=== PATIENT | male | born 1930 | race Caucasian/White ===

== ENCOUNTER 2018-02-01 07:13 | Observation (INO) | payer BC ==
[2018-02-01] MEDS ORDERED: NS 0.9% 1000 ML*IV.FLUID IV ONE (07:44)
[2018-02-01] MEDS ORDERED: cefTRIAXone(*) 1 GM in NS 0.9% 50 ML* 50 ML IVPB ONE (07:46)
[2018-02-01 08:00] LABS: ABS Basophils 0 10^3/ul (0-0.2); ABS Eosinophils 0 10^3/ul (0-0.6); ABS Lymphocytes 0.2 10^3/ul (1.0-4.8); ABS Monocytes 0.8 10^3/ul (0-0.8); ABS Neutrophils 7.6 10^3/ul (1.5-7.7); ABS Nucleated RBC 0 10^3/ul; Eosinophil % 0 % (0-6); Hematocrit 34 % (42-52); Hemoglobin 11.6 g/dl (14.0-18.0); Lymphocyte % 1.9 % (25-47); Mean Corpuscular HGB Conc 34 g/dl (31-36); Mean Corpuscular Hemoglobin 35 pg (27-31); Mean Corpuscular Volume 103 fL (80-94); Mean Platelet Volume 8.1 um3 (7.4-10.4); Nucleated Red Blood Cells % 0; Platelet Count 237 10^3/ul (150-450); Red Blood Count 3.29 10^6/ul (4.0-5.4); Red Cell Distribution Width 13 % (10.5-15); White Blood Count 8.6 10^3/ul (3.5-10.8)
[2018-02-01 08:19] LABS: EGFR Non-African American 65.7 (>60)
[2018-02-01] MEDS ORDERED: Acetaminophen TAB* 325 MG PO ONE (08:30)
--- NOTE | 2018-02-01 08:35 | RAD ---
INDICATION: Shortness of breath. COMPARISON: None TECHNIQUE: PA and lateral views of the chest were obtained. FINDINGS: The heart and mediastinum are normal in size and contour. The lungs are grossly clear. There is no evidence of large pleural effusion. Visualized bones are normal for the patient's age. There is no radiographic evidence of free air beneath the diaphragm IMPRESSION: No radiographic evidence of acute cardiopulmonary disease.
[2018-02-01] MEDS ORDERED: Albuterol/Ipratropium NEB.SOL* Albuterol 2.5 MG/Ipratropium 0.5 MG 3 ML INH ONE (09:52)
[2018-02-01] MEDS ORDERED: Azithromycin IV(*) 500 MG in NS 0.9% 250 ML* 250 ML IVPB ONE (11:19)
[2018-02-01 11:42] LABS: Urine Appearance Clear; Urine Blood Negative (Negative); Urine Color Yellow; Urine Ketones 1+ (Negative); Urine Protein Negative (Negative); Urine Specific Gravity 1.021 (1.010-1.030); Urine Urobilinogen Negative (Negative)
[2018-02-01] MEDS ORDERED: Acetaminophen TAB* 325 MG PO PRN (11:59)
[2018-02-01] MEDS ORDERED: Ondansetron INJ* 2 MG/ML VIAL IV PRN (11:59)
[2018-02-01] MEDS ORDERED: Albuterol/Ipratropium NEB.SOL* Albuterol 2.5 MG/Ipratropium 0.5 MG 3 ML INH PRN (12:09)
[2018-02-01] MEDS: NS 0.9% 1000 ML* 1,000 ML IV SCH (14:02)
[2018-02-01] MEDS: Heparin VIAL(*) 5000 UNITS/ML VIAL (FIVE THOUSAND) SUBCUT SCH ×2 (14:02→21:30)
[2018-02-01] MEDS: Benzonatate CAP* 100 MG PO PRN ×2 (14:20→21:30)
--- NOTE | 2018-02-01 14:59 | HP ---
CC: Dr. Lion Radford * ADMISSION HISTORY AND PHYSICAL: DATE OF ADMISSION: 02/01/18 PRIMARY CARE DOCTOR: Dr. Lion Radford. MY ATTENDING WHILE IN THE HOSPITAL: Dr. Pal Rouse.* (DICTATED BY EMEKA DICKSON) CHIEF COMPLAINT: Cough, weakness, and shortness of breath x3 days. HISTORY OF PRESENT ILLNESS: Mr. Church is an 87-year-old male with past medical history significant for Waldenstrom's macroglobulinemia, in remission since 2008, and progressive shortness of breath of unknown cause over the past several years, who presents after being in his normal state of health on Wednesday and then becoming progressively weak, getting muscle aches from Wednesday into Wednesday, then developing a cough, which kept him up on Wednesday night. The patient states then he slept until Wednesday 3 p.m., continued to have a cough, chills for which he needed an electric blanket. The patient states the cough was productive of mcgovern sputum and then he continued to feel poorly. The patient had no documented fevers at this time but as above had chills and rigors. The patient had no sick contacts and no exposure to anybody with the flu. The patient had never had anything like this in the past. The patient has had his pneumonia vaccinations and his flu vaccination. The patient overnight had an episode of posttussive vomiting and fecal incontinence of formed stool. The patient has no other abdominal pain or diarrhea. This is what prompted the patient to come in to the hospital. The patient states that he did not have any wheezing with the episode, but that he does have "whistling" in his chest mainly after coughing. The patient states that yesterday, he was able to push a wheelbarrow full of wood uphill, but had to take several breaks while doing so , which is very abnormal for him. The patient came this morning, had a documented fever of 101.5 at home by his , and took aspirin at that time. The patient upon arrival to emergency department had temperature of 100.5, pulse rate of 102, oxygen saturation 91% on room air, and blood pressure of 120/ 64. The patient desatted multiple times down to the mid 80s while in the emergency department on room air, but this resolved with placement of 2 L of oxygen by nasal cannula. The patient had an ABG, which showed decreased PO2 of 54. The patient also had elevated CRP and procalcitonin and a chest x-ray, which showed no acute pulmonary process by radiologist's read, but it showed possible infiltrate in the lower lobes on personal review. For suspected community acquired pneumonia, we are asked to evaluate for admission. The patient had chest pain with cough but no other chest pain. PAST MEDICAL HISTORY: Waldenstrom's macroglobulinemia, treated with chemotherapy in 2008 and in remission, followup every 6 months; BPH; nephrolithiasis; BPPV, now resolved. PAST SURGICAL HISTORY: Appendectomy and cystoscopy x2. MEDICATIONS: Finasteride 5 mg p.o. daily. ALLERGIES: No known drug allergies. FAMILY HISTORY: The patient's father and brother both of myocardial infarctions. The patient's mother of lymphoma. The patient has no other siblings nor other syndromes running in his family. SOCIAL HISTORY: The patient smoked 60 years ago for a couple of years before and while he was in the [facility]. The patient drinks occasional alcohol; never abused alcohol. The patient has never used illicit drugs. The patient works currently in [employer] and has for several decades. The patient is and has 1 adopted child. REVIEW OF SYSTEMS: A 14-point review of systems was reviewed and is negative except as above in the HPI. PHYSICAL EXAMINATION GENERAL: The patient is an 87-year-old male, who appears stated age and sitting comfortably in bed, in no acute distress. VITAL SIGNS: Upon arrival to the emergency department, temperature 100.5, pulse rate 102, respiratory rate 17, oxygen saturation 91% on room air, blood pressure 120/64. HEENT: Head: Normocephalic, atraumatic. Sclerae anicteric. No conjunctival injection. Nasal mucosa is moist. Oral mucosa moist. No pharyngeal erythema, discharge, exudate, or postnasal drip. NECK: Supple, nontender. No lymphadenopathy. No carotid bruits auscultated. RESPIRATORY: The patient has slight expiratory wheezes with prolonged expiratory phase throughout. His lungs, the patient has rhonchi primarily in the left lower lobe and in the right upper lobe. Egophony is negative throughout for consolidation. CARDIAC: Regular rate and rhythm. No clicks, murmurs, gallops, or rubs. Pulses 2+ in the bilateral dorsalis pedis, posterior tibial, and radial areas. No bilateral lower extremity edema or calf tenderness. ABDOMEN: Soft, nontender, nondistended. Bowel sounds present, normoactive in all 4 quadrants. No hepatosplenomegaly. No abdominal bruits auscultated. GENITOURINARY: No suprapubic or CVA tenderness. NEURO: Cranial nerves II through XII intact. No focal deficits. Alert and oriented x3. PSYCHIATRIC: Very pleasant, cooperative. SKIN: Clean, dry, intact. No rash. DIAGNOSTIC STUDIES/LAB DATA: White blood cell count 8.6, hemoglobin 11.6, hematocrit 34, platelet count 234, neutrophil percent 88.5. Fibrinogen 479. pH 7.38, PCO2 30, PO2 54, oxygen saturation 98.7%, base excess -5.5. Sodium 137 , potassium 4.0, chloride 106, carbon dioxide 22, anion gap 9, BUN 26, creatinine 1.07, glucose 136, lactic acid 1.1, calcium 8.9. Bilirubin 0.4, AST 19, ALT 12, alkaline phosphatase 50. Creatine kinase 131, CK-MB 2.6. Troponin I 0.02. CRP 43.07. BNP 74. Total protein 74, albumin 3.6, globulin 3.8, procalcitonin 7.7. Urine shows 1+ ketones, no other significant findings. Influenza A and B negative. Chest x-ray read as no acute cardiopulmonary disease, possible infiltrate in the lower lobes on the lateral view on personal review. Electrocardiogram shows PACs, no ST-segment changes, normal axis, QTc 445, rate of 85, no other abnormalities, consistent with previous exams. ASSESSMENT AND PLAN: Impression: The patient is an 87-year-old male with a past medical history significant only for Waldenstrom's macroglobulinemia, presents with 3 days of cough, weakness, shortness of breath, and not feeling well, consistent with community-acquired pneumonia. The patient admitted to the hospital for antibiotics and supportive care. 1. Acute respiratory failure, possible community-acquired pneumonia. The patient has significant desaturations on room air and elevated procalcitonin, shortness of breath, productive cough, rigors, and elevated temperatures all consistent with community-acquired pneumonia. The patient meets systemic inflammatory response syndrome criteria with a pulse rate upon arrival of 105, temperature of 100.5, PO2 less than 60, and a suspected source of infection of pneumonia. The patient has a Pneumonia Severity Index of 95 points indicating 8.2% to 9.3% predictive mortality. The patient for his hypoxia has 2 points on his SOFA. We will get a urinary antigen for Streptococcus pneumoniae and legionella. Give ceftriaxone and azithromycin for empiric community-acquired pneumonia coverage. The patient received 30 mL/kg while in the emergency department. The patient received 2 other additional liters at 75 mL an hour as he appears dehydrated and has had poor oral intake. The patient will have albuterol inhalers available for wheezing as well as guaifenesin and Tessalon. 2. Waldenstrom's macroglobulinemia, in remission. The patient has an elevated globulin level but has had this monitored every [address] Glez and has had no concerns to this point. 3. Benign prostatic hyperplasia. Continue finasteride. The patient has no signs of urinary tract infection. 4. DVT prophylaxis. The patient is a high risk. The patient will receive heparin subcu. 5. FEN. The patient will have regular unrestricted diet and fluids as above. 6. Code status. The patient would like to be a full code. The patient's healthcare proxy is his , Sheila Church. 7. Disposition. The patient is admitted for observation to telemetry. TIME SPENT: Approximately 60 minutes was spent on this admission, 30 of which was spent [id number] with the patient obtaining history and physical and discussing treatment plan. EMEKA DICKSON [id number]/NANCY #: [id number] LOLITA
[2018-02-01] MEDS: guaiFENesin ER TAB 600 MG PO SCH (21:30)
[2018-02-02] MEDS: NS 0.9% 1000 ML* 1,000 ML IV SCH (03:29)
[2018-02-02 06:51] LABS: ABS Basophils 0 10^3/ul (0-0.2); ABS Eosinophils 0.1 10^3/ul (0-0.6); ABS Lymphocytes 0.7 10^3/ul (1.0-4.8); ABS Monocytes 0.5 10^3/ul (0-0.8); ABS Neutrophils 5.8 10^3/ul (1.5-7.7); ABS Nucleated RBC 0 10^3/ul; Eosinophil % 1.5 % (0-6); Hematocrit 29 % (42-52); Hemoglobin 10.2 g/dl (14.0-18.0); Lymphocyte % 9.3 % (25-47); Mean Corpuscular HGB Conc 35 g/dl (31-36); Mean Corpuscular Hemoglobin 36 pg (27-31); Mean Corpuscular Volume 103 fL (80-94); Nucleated Red Blood Cells % 0; Platelet Count 192 10^3/ul (150-450); Red Blood Count 2.83 10^6/ul (4.0-5.4); Red Cell Distribution Width 13 % (10.5-15)
[2018-02-02 07:10] LABS: EGFR Non-African American 91.9 (>60)
[2018-02-02] MEDS: Heparin VIAL(*) 5000 UNITS/ML VIAL (FIVE THOUSAND) SUBCUT SCH ×3 (07:18→21:25)
[2018-02-02] MEDS: cefTRIAXone(*) 1 GM in NS 0.9% 50 ML* 50 ML IVPB SCH (07:26)
[2018-02-02] MEDS: Finasteride TAB* 5 MG PO SCH (09:27)
[2018-02-02] MEDS: Benzonatate CAP* 100 MG PO PRN (09:27)
[2018-02-02] MEDS: guaiFENesin ER TAB 600 MG PO SCH ×2 (09:27→21:24)
[2018-02-02] MEDS ORDERED: Azithromycin IV(*) 250 MG in NS 0.9% 250 ML* 250 ML IVPB SCH (11:00)
[2018-02-02] MEDS: Azithromycin IV(*) 250 MG in NS 0.9% 250 ML* 250 ML IVPB SCH (11:42)
--- NOTE | 2018-02-02 14:21 | RAD ---
HISTORY: Follow-up pneumonia COMPARISONS: February 01, 2018 VIEWS: 5: Frontal dual-energy and lateral views of the chest. FINDINGS: CARDIOMEDIASTINAL SILHOUETTE: The cardiomediastinal silhouette is normal. RIDDHI: The riddhi are normal. PLEURA: The costophrenic angles are sharp. No pleural abnormalities are noted. LUNG PARENCHYMA: There is hyperinflation with flattening of the diaphragm and expansion of the AP diameter of the chest. ABDOMEN: The upper abdomen is clear. There is no subphrenic gas. BONES AND SOFT TISSUES: Degenerative changes are noted along the spine. OTHER: None. IMPRESSION: HYPERINFLATION. NO ACTIVE CARDIOPULMONARY DISEASE.
[2018-02-02] MEDS: Albuterol 2.5 MG/3 ML NEB.SOL* (0.083%) INH SCH ×2 (17:16→19:33)
--- NOTE | 2018-02-02 21:22 | PN ---
Subjective Date of Service: 02/02/18 Interval History: Feels he is getting better, still with a cough that is occasionally productive of sputum. Afebrile. He has only been able to walk to the bathroom, while on a usual day he has no respiratory limitations. His also reports some concern that he is more weak than usual. Objective Active Medications: Acetaminophen (Tylenol Tab*) 650 mg PO Q6H PRN PRN Reason: FEVER/PAIN Albuterol (Ventolin 2.5 Mg/3 Ml Neb.Linda*) 2.5 mg INH [id number] AWAKE [facility] Benzonatate (Tessalon Cap*) 100 mg PO BID PRN PRN Reason: COUGH Last Admin: 02/02/18 09:27 Dose: 100 mg Finasteride (Proscar Tab*) 5 mg PO QAM [facility] Last Admin: 02/02/18 09:27 Dose: 5 mg Guaifenesin (Mucinex*) 1,200 mg PO BID [facility] Last Admin: 02/02/18 09:27 Dose: 1,200 mg Heparin Sodium (Porcine) (Heparin Vial(*)) 5,000 units SUBCUT Q8HR [facility] Last Admin: 02/02/18 13:48 Dose: 5,000 units Sodium Chloride (Ns 0.9% 1000 Ml*) 1,000 mls @ 75 mls/hr IV PER RATE [facility] Stop: 02/03/18 01:34 Last Admin: 02/02/18 03:29 Dose: 75 mls/hr Ceftriaxone Sodium 1 gm/ (Sodium Chloride) 50 mls @ 200 mls/hr IVPB Q24H [facility] Last Admin: 02/02/18 07:26 Dose: 200 mls/hr Azithromycin 250 mg/ Sodium (Chloride) 250 mls @ 250 mls/hr IVPB Q24H [facility] Last Admin: 02/02/18 11:42 Dose: 250 mls/hr Ondansetron HCl (Zofran Inj*) 4 mg IV Q6H PRN PRN Reason: NAUSEA Vital Signs - 8 hr 02/02/18 02/02/18 02/02/18 15:30 17:22 19:34 Temperature 98.0 F Pulse Rate 61 65 65 Respiratory 16 16 Rate Blood Pressure 139/69 (mmHg) O2 Sat by Pulse 96 94 96 Oximetry Oxygen Devices in Use Now: None Appearance: alert, no distress, coughs frequently during my exam Eyes: No Scleral Icterus Ears/Nose/Mouth/Throat: NL Teeth, Lips, Gums Neck: NL Appearance and Movements; NL JVP Respiratory: - - diffuse expiratory wheezing, scattered rhonchi Cardiovascular: NL Sounds; No Murmurs; No JVD, RRR Abdominal: NL Sounds; No Tenderness; No Distention, No Hepatosplenomegaly Lymphatic: No Cervical Adenopathy Extremities: No Edema Skin: No Rash or Ulcers Neurological: Alert and Oriented x 3 Result Diagrams: 02/02/18 06:36 02/02/18 06:36 Microbiology and Other Data: Microbiology 02/01/18 19:08 Gram Stain - Final Sputum Expectorated 02/01/18 13:00 Legionella Urinary Antigen - Final Urine Negative Legionella Antigen Streptococcus pneumoniae Ag Screen - Final Positive S. Pneumo Antigen Assess/Plan/Problems-Billing Assessment: 87 yo man with history of waldenstrom's macroglobulinemia admitted with cough and weakness - Patient Problems (1) Community acquired bacterial pneumonia Current Visit: Yes Status: Acute Code(s): J15.9 - UNSPECIFIED BACTERIAL PNEUMONIA SNOMED Code(s): 752452676 Comment: sputum cultures pending ceftriaxone/azithromycin fever improved, feeling better (2) Waldenstrom macroglobulinemia Current Visit: No Status: Chronic Code(s): C88.0 - WALDENSTROM MACROGLOBULINEMIA SNOMED Code(s): 114680852 (3) Hyperinflation of lungs Current Visit: Yes Status: Acute Code(s): R09.89 - OTH SYMPTOMS AND SIGNS INVOLVING THE CIRC AND RESP SYSTEMS SNOMED Code(s): 27334327 Comment: his examination is consistent with copd and he has hyperinflation, though he says he hasn't smoked for many years. he would benefit from PFTs as an outpatient. I am adding standing nebs as well.
[2018-02-03] MEDS: Albuterol 2.5 MG/3 ML NEB.SOL* (0.083%) INH SCH ×2 (01:56→08:24)
[2018-02-03] MEDS: Heparin VIAL(*) 5000 UNITS/ML VIAL (FIVE THOUSAND) SUBCUT SCH ×2 (06:03→14:06)
[2018-02-03] MEDS: cefTRIAXone(*) 1 GM in NS 0.9% 50 ML* 50 ML IVPB SCH (07:24)
[2018-02-03] MEDS ORDERED: Albuterol 2.5 MG/3 ML NEB.SOL* (0.083%) INH PRN (08:22)
[2018-02-03] MEDS: Finasteride TAB* 5 MG PO SCH (08:23)
[2018-02-03] MEDS: Benzonatate CAP* 100 MG PO PRN (08:23)
[2018-02-03] MEDS: guaiFENesin ER TAB 600 MG PO SCH (08:23)
--- NOTE | 2018-02-03 10:53 | ED ---
Jose Solis Angela, scribed for Rolf Chowdhury MD on 02/01/18 at 0759 . Respiratory - HPI Summary HPI Summary: This pt is a 87 y/o male [facility] [place]B x3 days. Pt reports that he has had difficulty breathing since 3 days ago. Additionally the pt states nausea, vomiting, productive cough, body aches, and fever. Pt describes productive cough with martinez, yellow/green sputum. He notes he didn't sleep well 2 days ago secondary to his symptoms as well as last night. This morning at 02: 00 the pt notes he felt nauseous and vomited. Pt states he has chest wall pain secondary to his cough. - History of Current Complaint Chief Complaint: EDShortnessOfBreath Stated Complaint: SOB-2 DAYS Time Seen by Provider: 02/01/18 07:37 Hx Obtained From: Patient Onset/Duration: Lasting Days, Still Present Timing: Constant Current Severity: Moderate Pain Intensity: 4 Character: Cough (Productive) Sputum Amount: Small Sputum Color: Yellow, Green, Martinez Aggravating Factor(s): Nothing Alleviating Factor(s): Nothing Associated Signs and Symptoms: Fever, SOB, Chest Pain with Cough - Allergy/Home Medications Allergies/Adverse Reactions: Allergies Allergy/AdvReac Type Severity Reaction Status Date / Time No Known Allergies Allergy Verified 02/01/18 07:16 PMH/Surg Hx/FS Hx/Imm Hx Endocrine/Hematology History: Reports: Hx Blood Disorders - Waldenstrom's macroglobulinemia Denies: Hx Diabetes Cardiovascular History: Reports: Other Cardiovascular Problems/Disorders - high cholesterol Denies: Hx Congestive Heart Failure, Hx Hypertension History: Reports: Hx Kidney Stones - BILATERAL, Other Problems/Disorders - Ureteral stent (1 year ago) Denies: Hx Renal Disease Musculoskeletal History: Reports: Hx Back Problems, Other Musculoskeletal History - 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 APPENDECTOMY 2+ MONTHS PRIOR TO EXAM Hx Anesthesia Reactions: No Infectious Disease History: No Infectious Disease History: Denies: Traveled Outside the [place] in Last 30 Days - Family History Known Family History: Positive: Cardiac Disease - Father: ID Family History: Mother: [place] - Social History Alcohol Use: None Substance Use Type: Reports: None Smoking Status (MU): Never Smoked Tobacco Review of Systems Positive: Fever Eyes: Negative ENT: Negative Positive: Shortness Of Breath, Cough Positive: Vomiting, Nausea Positive: Myalgia All Other Systems Reviewed And Are Negative: Yes Physical Exam - Summary Physical Exam Summary: VITAL SIGNS: Reviewed. GENERAL: Patient is a well-developed and nourished male who is lying comfortable in the stretcher. HEAD AND FACE: No signs of trauma. No ecchymosis, hematomas or skull depressions. No sinus tenderness. EYES: PERRLA, EOMI x 2, No injected conjunctiva, no nystagmus. EARS: Hearing grossly intact. Ear canals and tympanic membranes are within normal limits. MOUTH: Oropharynx within normal limits. NECK: Supple, trachea is midline, no adenopathy, no JVD, no carotid bruit, no c- spine tenderness, neck with full ROM. CHEST: Symmetric, no tenderness at palpation LUNGS: Crackles on the left lung. Pt is hypoxic. He has a productive cough with yellow/green phlegm. CVS: Regular rate and rhythm, S1 and S2 present, no murmurs or gallops appreciated. ABDOMEN: Soft, non-tender. No signs of distention. No rebound no guarding, and no masses palpated. Bowel sounds are normal. EXTREMITIES: FROM in all major joints, no edema, no cyanosis or clubbing. NEURO: Alert and oriented x 3. No acute neurological deficits. Speech is normal and follows commands. SKIN: Dry and warm Triage Information Reviewed: Yes Vital Signs On Initial Exam: Initial Vitals Temp Pulse Resp BP Pulse Ox 100.5 F 102 17 120/64 91 02/01/18 07:16 02/01/18 07:16 02/01/18 07:16 02/01/18 07:16 02/01/18 07:16 Vital Signs Reviewed: Yes Diagnostics - Vital Signs Vital Signs Temp Pulse Resp BP Pulse Ox 02/01/18 07:37 93 24 92 02/01/18 07:36 140/86 02/01/18 07:16 100.5 F 102 17 120/64 91 - Laboratory Result Diagrams: 02/01/18 07:48 02/01/18 07:48 Lab Statement: Any lab studies that have been ordered have been reviewed, and results considered in the medical decision making process. - Radiology Chest XR Xray Interpretation: No Acute Changes - IMPRESSION: No radiographic evidence of acute cardiopulmonary disease. Dr. Chowdhury has reviewed this radiology report. Radiology Interpretation Completed By: Radiologist - EKG 08:16 Cardiac Rate: NL EKG Rhythm: Sinus Rhythm - at 85 bpm EKG Interpretation: No ST elevations. Normal axis. EKG Comparison: No Significant Change - similar to prior EKG on 10/23/14. Disposition - Course Assessment/Plan: This pt is a 87 y/o male [facility] [place]/o SOB x3 days. Pt reports that he has had difficulty breathing since 3 days ago. Additionally the pt states nausea, vomiting, productive cough, body aches, and fever. Pt describes productive cough with martinez, yellow/green sputum. He notes he didn't sleep well 2 days ago secondary to his symptoms as well as last night. This morning at 02:00 the pt notes he felt nauseous and vomited. Pt states he has chest wall pain secondary to his cough. Test results without any significant abnormalities except for slight anemia, CRP of 43, procalcitonin of 7.7. The pt is becoming hypoxic without oxygen therefore I performed an ABG which shows pH of 7.38, pCO2 of 30, pO2 of 54, O2 saturation of 89 consistent with hypoxia. Chest XR shows no radiographic evidence of acute cardiopulmonary disease. In the ED course the pt was given IV fluids, Rocephin and Azithromycin for community acquired pneumonia. Because of the hypoxia I discussed the case with Dr. Rouse, hospitalist, who accepted the pt for admission. Pt is hemodynamically stable, alert and oriented x3. Dx: clinical pneumonia, hypoxia. - Diagnoses Provider Diagnoses: Pneumonia, Hypoxia - Physician Notifications Discussed Care Of Patient With: Pal Rouse Time Discussed With Above Provider: 11:18 Instructed by Provider To: Other - I discussed pt care with Dr. Rouse, hospitalist, who has agreed to admit the pt. Discharge - Sign-Out/Discharge Documenting (check all that apply): Discharge - admit to [facility] - Discharge Plan Condition: Stable Disposition: ADMITTED TO [facility] The documentation as recorded by the Jose fine Angela accurately reflects the service I personally performed and the decisions made by Trenton rinaldi Walter, MD.
[2018-02-03] MEDS: Azithromycin IV(*) 250 MG in NS 0.9% 250 ML* 250 ML IVPB SCH (12:16)
[2018-02-03] MEDS ORDERED: NS 0.9% 250 ML* 250 ML ONE (13:55)
[2018-02-03 16:15] VITALS: BP 129/63
--- NOTE | 2018-02-03 16:52 | DS ---
CC: Dr. Radford * DATE OF ADMISSION: 02/01/2018. DATE OF DISCHARGE: 02/03/2018. PRIMARY CARE PHYSICIAN: Dr. Radford. PRINCIPAL DISCHARGE DIAGNOSIS: Community-acquired pneumonia. SECONDARY DISCHARGE DIAGNOSES: 1. History of Waldenstrom's macroglobulinemia, currently in remission. 2. BPH. DISCHARGE MEDICATIONS: 1. Finasteride 5 mg daily. 2. Levofloxacin 500 mg daily for 4 more days. PHYSICAL EXAMINATION AT THE TIME OF DISCHARGE: General: Alert, well-appearing man in no distress. Vital Signs: Temperature 98.1, heart rate 48, respiratory rate 22, pulse ox 95 percent on room air, blood pressure 148/48. HEENT: Pupils equal, round and reactive to light. No mucosal lesions. No pharyngeal exudates or erythema. Neck: No cervical lymphadenopathy, no supraclavicular lymphadenopathy, no JVP. Chest: Regular rate and rhythm. No murmurs. PMI nondisplaced. Lungs: Few scattered expiratory wheezes. Abdomen: Soft, nontender, nondistended. No organo-megaly. No guarding or rebound. Extremities : No rashes, no ulcers, no edema. Neurologic: Normal gait. Strength 5/5 throughout. HOSPITAL COURSE BY PROBLEM: 1. Community-acquired pneumonia: At admission, he was started on Ceftriaxone and Azithromycin. His strep pneumo antigen returned positive. He is being discharged on Levofloxacin for four more days. At the time of discharge, he maintained good oxygenation with ambulation and he has no complaints. 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 2. BPH: He was continued on Finasteride. DISPOSITION: Mr. Church was discharged to home on 02/03/2018 with his with four more days of Levofloxacin. He was instructed not to take this with dairy products. He was instructed to return to the emergency department with any fevers, chills, worsening cough, chest pain, shortness of breath, orthopnea , or other symptoms. [id number]/[facility] #: [id number] MTDD
== END 2018-02-03 16:50 | disposition home or self-care (01) ==
LOC: ED 07:13 → MEDTELE 12:17
PROVIDERS: ADMIT Internal Medicine; ATTEND Internal Medicine
DX: J15.9 Unspecified bacterial pneumonia (principal); C88.0 Waldenstrom macroglobulinemia; R09.89 Other specified symptoms and signs involving the circulatory and respiratory systems; R09.02 Hypoxemia; R50.9 Fever, unspecified; R06.02 Shortness of breath; R07.9 Chest pain, unspecified; R11.2 Nausea with vomiting, unspecified; R05 Cough
CPT/HCPCS: 36415; 36600; 71046; 80048; 80053; 81003; 82550; 82553; 82803; 83605; 83735; 83880; 84145; 84484; 85025; 85384; 86140; 87040; 87070; 87077; 87205; 87502; 87899; 93005; 94640; 96365; 99284; A9270-GY; G0378; G8978-GP-CH; G8979-GP-CH; G8980-GP-CH; G8981-GP-CH; G8982-GP-CH; G8983-GP-CH; J0456; J0696; J1644